=== PATIENT | male | born 1970 | race Caucasian/White ===

== ENCOUNTER → 2022-12-29 09:15 | Outpatient (CLI) | payer BC, SELFPAY ==
--- NOTE | 2022-12-29 09:21 | XR_ITS ---
FINAL REPORT CLINICAL HISTORY: NECK PAIN INTO RIGHT ARM COMPARISON: None FINDINGS: 5 views of the cervical spine were obtained. There is no fracture present. Moderate degenerative disc change in the lower cervical spine. Mild anterolisthesis of C4 on C5 measuring 4 mm. Probable bony neuroforaminal narrowing bilaterally at C3-4, C4-5, and C5-6. IMPRESSION: Multiple level degenerative disc disease. Reviewed, Interpreted and Dictated by Angella Dee MD Transcribed by Rupal Marques Authenticated and [facility]
== END ==
PROVIDERS: PCP Nurse Practitioner Family; Visit Provider Nurse Practitioner Family
DX: M54.2 Cervicalgia (principal)
CPT/HCPCS: 72050

== ENCOUNTER 2023-11-06 11:52 | Outpatient (CLI) | payer BC, SELFPAY ==
--- NOTE | 2023-11-06 11:56 | XR_ITS ---
FINAL REPORT CLINICAL HISTORY: LEFT LOWER QUADRANT ABDOMINAL PAIN COMPARISON: None FINDINGS: A single supine view the abdomen was obtained. The bowel gas pattern is nonspecific but nonobstructive. Calcified gallstones are present in the right upper quadrant. Osseous structures are within normal limits. IMPRESSION: Nonspecific but nonobstructive bowel gas pattern. Calcified gallstones present in the right upper quadrant. Reviewed, Interpreted and Dictated by John Pacheco MD Transcribed by Jennifer Sinha Authenticated and [facility]
== END 2023-11-06 23:59 | disposition home or self-care (01) ==
LOC: RAD 11:53
PROVIDERS: PCP Family Medicine; Visit Provider Family Medicine
DX: R10.32 Left lower quadrant pain (principal)
CPT/HCPCS: 74018